=== PATIENT | male | born 1985 | race Hispanic/Latino ===

== ENCOUNTER 2019-03-10 13:36 | Emergency (ER) | payer SELFPAY ==
[2019-03-10] MEDS ORDERED: Lidocaine 1% 20 ML MDV ONE (14:39)
[2019-03-10] MEDS ORDERED: Azithromycin 250 MG TAB ONE (14:39)
[2019-03-10] MEDS ORDERED: cefTRIAXone\\ROCEPHIN 1 GM VIAL ONE (14:39)
[2019-03-10 14:50] LABS: Bilirubin Negative (Negative); Blood, Urine Small (Negative); Glucose, Urine (Dipstick) Negative (Negative); Leukocyte Small (Negative); Nitrite Negative (Negative); Protein, Urine (Dipstick) 100 mg/dL (Neg-Trace)
[2019-03-10 14:51] LABS: Clarity Slightly Cloudy (Clear)
[2019-03-10 14:56] LABS: Bacteria/HPF Rare-Few HPF (None Seen); Mucous/LPF 2+ LPF (<2+); Squamous Epithelial 0-3 HPF (0-3); WBC/HPF 21-50 HPF (0-3)
[2019-03-14 00:08] LABS: Chlam.trachomatis by PCR,Urine DETECTED (NotDetected)
== END 2019-03-10 15:45 ==
LOC: MADERS 13:36 → EEVIPCON 13:36 → MADERS 15:45
DX: N34.1 Nonspecific urethritis (principal); K62.89 Other specified diseases of anus and rectum; E11.9 Type 2 diabetes mellitus without complications; I10 Essential (primary) hypertension; F17.210 Nicotine dependence, cigarettes, uncomplicated
CPT/HCPCS: 81003; 81015; 87491; 87591; 96372; 99283; J0696; J2001

== ENCOUNTER 2019-03-30 15:11 | Emergency (ER) | payer SELFPAY ==
[2019-03-30 16:49] LABS: Bilirubin Negative (Negative); Blood, Urine Trace (Negative); Glucose, Urine (Dipstick) Negative (Negative); Leukocyte Negative (Negative); Nitrite Negative (Negative); Protein, Urine (Dipstick) 30 mg/dL (Neg-Trace)
[2019-03-30 16:54] LABS: Clarity Hazy (Clear)
[2019-03-30 16:56] LABS: Bacteria/HPF Rare-Few HPF (None Seen); Squamous Epithelial 0-3 HPF (0-3); WBC/HPF 0-3 HPF (0-3)
[2019-03-30 17:07] LABS: ALT (SGPT) 81 U/L (8-55); AST (SGOT) 60 U/L (5-34); Alkaline Phosphatase 82 U/L (40-150); Anion Gap 12 mmol/L (10-20); BUN (Urea Nitrogen) 16 mg/dL (8.9-20.6); Bilirubin, Total 0.6 mg/dL (0.2-1.2); Calc. Creatinine Clearance 0 mL/min (70-130); Calcium 9.2 mg/dL (7.8-10.44); Carbon Dioxide 29 mmol/L (22-29); Chloride 101 mmol/L (98-107); Estimated GFR-MDRD 80; Globulin 4.6 g/dL (2.4-3.5); Glucose 93 mg/dL (70-105); Potassium 3.9 mmol/L (3.5-5.1); Protein, Total 8.6 g/dL (6.0-8.3); Sodium 138 mmol/L (136-145)
[2019-04-02 19:11] LABS: Chlam.trachomatis by PCR,Urine Not Detected (NotDetected)
== END 2019-03-30 18:00 ==
LOC: EEVIPCON 15:11 → MADERS 15:11
DX: R33.9 Retention of urine, unspecified (principal); E11.9 Type 2 diabetes mellitus without complications; I10 Essential (primary) hypertension; F41.9 Anxiety disorder, unspecified; F17.210 Nicotine dependence, cigarettes, uncomplicated
CPT/HCPCS: 36415; 51702; 51798; 80053; 81003; 81015; 87491; 87591